=== PATIENT | female | born 1955 | race African-American/Black ===

== ENCOUNTER 2023-01-15 00:11 | Inpatient (IN) | payer MEDICARE, MEDICAID ==
[2023-01-15] VITALS (19 sets, daily range): BP systolic 114–143; BP diastolic 54–80; PULSE 85–123; RESP 17–44; TEMP 98.5; O2SAT 87–95
[~2023-01-15] VITALS: Ht 167.6 cm; Wt 91.1 kg
[~2023-01-15 00:11] MED LIST: CARV3.1240; CEPH500C PO; ENAL5TAB22; FAMO40TA7; FLUT500M6; FURO1TAB33; GABA-1250; HYDR-4833; METF-370; PROVENTIL; SENN8.6C; TEMA15CA; TIOTCAP; TRAZ-227
[2023-01-15] MEDS ORDERED: IPRATROPIUM BROM 0.5 MG/2.5ML INH SOL NEB ONE (00:45)
[2023-01-15] MEDS ORDERED: ALBUTEROL SULF 2.5 MG/0.5ML(0.5%) NEB SOLN NEB ONE (00:45)
[2023-01-15 01:14] LABS: Basophils # (auto) 0.1 10 ^3/uL (0-0.2); Basophils % (auto) 0.4 % (0.0-2.0); Eosinophils # (auto) 0 10 ^3/uL (0-0.8); Hematocrit 40.3 % (36.0-46.0); Hemoglobin 12.2 g/dL (12.2-16.2); Lymphocytes % (auto) 6.3 % (10.0-50.0); Mean Corpuscular Hemoglobin 25.6 pg (28.0-32.0); Mean Corpuscular Hgb Conc. 30.4 g/dL (32.0-36.0); Mean Corpuscular Volume 84.3 fL (80.0-100.0); Monocytes # (auto) 0.8 10 ^3/uL (0-1.3); Monocytes % (auto) 5.1 % (0.0-12.0); Neutrophils # (auto) 13.8 10 ^3/uL (1.6-8.6); Neutrophils % (auto) 88.2 % (37.0-80.0); Red Blood Cells 4.78 10^6/uL (4.0-5.20); Red Cell Distribution Width 14.7 % (11.8-14.3); White Blood Cell 15.6 10^3/uL (4.4-10.8)
[2023-01-15] MEDS ORDERED: DexAMETHasone SOD PHOS 10MG/1ML VIAL INJ IV ONE (01:15)
[2023-01-15 01:27] LABS: Alanine Aminotransferase 14 U/L (7-40); Albumin 4.5 g/dL (3.2-4.8); Alkaline Phosphatase 90 U/L (46-116); Anion Gap 3.5 (5-15); Aspartate Aminotransferase < 8 U/L (13-40); BUN/Creatinine Ratio 19.7 (10.0-20.0); Blood Urea Nitrogen 15 mg/dL (9-23); Calcium 9.7 mg/dL (8.7-10.4); Carbon Dioxide 39.5 mmol/L (20-30); Chloride 98 mmol/L (98-107); Glucose 134 mg/dL (74-106); Potassium 4.5 mmol/L (3.5-5.1); Sodium 141 mmol/L (136-145)
[2023-01-15 01:28] LABS: Bilirubin, Total 0.4 mg/dL (0.2-1.0); Total Protein 7.5 g/dL (5.7-8.2)
[2023-01-15 01:31] LABS: Partial Thromboplastin Time 24.9 SEC (24.5-34.5); Prothrombin Time 10.5 sec (9.3-11.8)
[2023-01-15 01:31] LABS: Base Excess 9.4 mmol/L (-2.0-2.0)
[2023-01-15] MEDS ORDERED: LORazepam 2MG/ML-1ML VIAL IV ONE ×2 (01:45→03:30)
[2023-01-15 03:01] LABS: Base Excess 8.7 mmol/L (-2.0-2.0)
[2023-01-15] MEDS ORDERED: HYDR-4902 PO (03:07)
[2023-01-15] MEDS ORDERED: MORPHINE SULFATE INJ 2 MG/ml SYRG IV PRN (03:15)
[2023-01-15] MEDS ORDERED: cefTRIAXone 1GM/50ML D5W 50 ML IV ONE (03:15)
[2023-01-15] MEDS ORDERED: ACETAMINOPHEN 325 MG TAB PO PRN (03:15)
[2023-01-15] MEDS ORDERED: ONDANSETRON HCL 4 MG/2 ML VIAL IV PRN (03:15)
[2023-01-15] MEDS ORDERED: NITROGLYCERIN 0.4 MG SL TAB SL PRN (03:15)
[2023-01-15] MEDS ORDERED: HYDROcodone-ACET 5/325MG TAB PO PRN (03:15)
[2023-01-15] MEDS ORDERED: DEXTROSE (50%) 50ML SYRG IV PRN (03:15)
[2023-01-15] MEDS ORDERED: DOCUSATE SOD 100 MG CAP PO PRN (03:15)
[2023-01-15] MEDS ORDERED: LIDOCAINE W/ EPINEPHRINE 1% 20ML VIAL SC ONE (03:30)
[2023-01-15] MEDS ORDERED: MIDAZOLAM HCL 5 MG/ML-1ML VIAL ONE (04:23)
[2023-01-15] MEDS ORDERED: MIDAZOLAM HCL 5 MG/ML-1ML VIAL IV ONE ×2 (04:24→05:45)
[2023-01-15 06:01] LABS: Basophils # (auto) 0 10 ^3/uL (0-0.2); Basophils % (auto) 0.1 % (0.0-2.0); Eosinophils # (auto) 0 10 ^3/uL (0-0.8); Mean Corpuscular Hemoglobin 25.5 pg (28.0-32.0); Red Cell Distribution Width 14.7 % (11.8-14.3)
[2023-01-15 06:04] LABS: Hematocrit 38.3 % (36.0-46.0); Hemoglobin 11.7 g/dL (12.2-16.2); Lymphocytes # (auto) 0.5 10 ^3/uL (0.4-5.4); Lymphocytes % (auto) 3.2 % (10.0-50.0); Mean Corpuscular Hgb Conc. 30.5 g/dL (32.0-36.0); Mean Corpuscular Volume 83.8 fL (80.0-100.0); Monocytes # (auto) 0.2 10 ^3/uL (0-1.3); Neutrophils # (auto) 15.1 10 ^3/uL (1.6-8.6); Neutrophils % (auto) 95.7 % (37.0-80.0); Red Blood Cells 4.57 10^6/uL (4.0-5.20); White Blood Cell 15.8 10^3/uL (4.4-10.8)
[2023-01-15 06:14] LABS: Alanine Aminotransferase 10 U/L (7-40); Albumin 4.4 g/dL (3.2-4.8); Alkaline Phosphatase 76 U/L (46-116); Anion Gap 8.1 (5-15); Aspartate Aminotransferase 10 U/L (13-40); BUN/Creatinine Ratio 20.3 (10.0-20.0); Bilirubin, Total 0.4 mg/dL (0.2-1.0); Blood Urea Nitrogen 15 mg/dL (9-23); Calcium 9.4 mg/dL (8.5-10.1); Carbon Dioxide 36.9 mmol/L (20-30); Chloride 97 mmol/L (98-107); Glucose 192 mg/dL (74-106); Potassium 3.8 mmol/L (3.5-5.1); Sodium 142 mmol/L (136-145); Total Protein 7.6 g/dL (5.7-8.2)
[2023-01-15 06:58] LABS: Base Excess 11.5 mmol/L (-2.0-2.0)
[2023-01-15] MEDS ORDERED: AZITHROMYCIN 500MG/ 250ML 250 ML IV ONE (07:00)
[2023-01-15] MEDS: SODIUM CHLOR 0.9% PF (SALINE LOCK) 10ML VIAL/SYR IV SCH ×3 (07:26→23:07)
[2023-01-15] MEDS: ACCU-CHEK COMFORT CURVE STRIP VI SCH ×4 (07:32→22:00)
[2023-01-15] MEDS: InsuLIN REG 1unit/0.01ml Soln (100units/ml) SC SCH ×4 (07:36→22:00)
[2023-01-15] MEDS: cefTRIAXone 1GM/50ML D5W 50 ML IV ONE ×2 (07:37→07:43)
[2023-01-15] MEDS: CARVEDILOL 3.125 MG TAB PO SCH ×2 (09:55→23:06)
[2023-01-15] MEDS: FAMOTIDINE (10MG/ML) 2ML VL IV SCH ×2 (09:57→23:06)
[2023-01-15] MEDS: FUROSEMIDE 20 MG/2 ML VIAL IV SCH (09:57)
[2023-01-15] MEDS: DexAMETHasone SOD PHOS 10MG/1ML VIAL INJ IV SCH (09:58)
[2023-01-15] MEDS: IPRATROPIUM BROM 0.5 MG/2.5ML INH SOL NEB PRN (10:21)
[2023-01-15] MEDS: ALBUTEROL SULF 2.5 MG/0.5ML(0.5%) NEB SOLN NEB PRN (10:21)
[2023-01-15] MEDS: LORazepam 2MG/ML-1ML VIAL IV PRN (11:41)
[2023-01-15] MEDS ORDERED: HALOPERIDOL LACTATE 5 MG/ML INJ VIAL IM ONE (12:45)
[2023-01-15] MEDS: MORPHINE SULFATE INJ 2 MG/ml SYRG IV PRN ×2 (13:58→22:56)
[2023-01-16] VITALS (39 sets, daily range): BP systolic 108–137; BP diastolic 45–81; PULSE 63–102; RESP 19–42; TEMP 97.7–98.6; O2SAT 89–100
[2023-01-16] MEDS: ALBUTEROL SULF 2.5 MG/0.5ML(0.5%) NEB SOLN NEB PRN (01:20)
[2023-01-16] MEDS: IPRATROPIUM BROM 0.5 MG/2.5ML INH SOL NEB PRN (01:20)
[2023-01-16 06:22] LABS: Basophils # (auto) 0.1 10 ^3/uL (0-0.2); Eosinophils # (auto) 0 10 ^3/uL (0-0.8); Hemoglobin 12.6 g/dL (12.2-16.2); Monocytes # (auto) 1.8 10 ^3/uL (0-1.3)
[2023-01-16 06:24] LABS: Basophils % (auto) 0.4 % (0.0-2.0); Hematocrit 39.8 % (36.0-46.0); Lymphocytes # (auto) 2.2 10 ^3/uL (0.4-5.4); Lymphocytes % (auto) 12.3 % (10.0-50.0); Mean Corpuscular Hemoglobin 25.7 pg (28.0-32.0); Mean Corpuscular Hgb Conc. 31.6 g/dL (32.0-36.0); Mean Corpuscular Volume 81.3 fL (80.0-100.0); Neutrophils % (auto) 77.3 % (37.0-80.0); Nucleated Red Blood Cells % 0.1 %; Red Cell Distribution Width 14.8 % (11.8-14.3); White Blood Cell 18.2 10^3/uL (4.4-10.8)
[2023-01-16 06:51] LABS: Alanine Aminotransferase 11 U/L (7-40); Albumin 4.5 g/dL (3.2-4.8); Alkaline Phosphatase 78 U/L (46-116); Aspartate Aminotransferase 13 U/L (13-40); Blood Urea Nitrogen 20 mg/dL (9-23); Chloride 95 mmol/L (98-107); Glucose 123 mg/dL (74-106); Potassium 3.9 mmol/L (3.5-5.1); Sodium 139 mmol/L (136-145)
[2023-01-16 06:52] LABS: Bilirubin, Total 0.6 mg/dL (0.2-1.0); Total Protein 7.7 g/dL (5.7-8.2)
[2023-01-16] MEDS: ALBUTEROL SULF 2.5 MG/0.5ML(0.5%) NEB SOLN NEB SCH ×4 (06:58→22:38)
[2023-01-16] MEDS: IPRATROPIUM BROM 0.5 MG/2.5ML INH SOL NEB SCH ×4 (06:58→22:38)
[2023-01-16] MEDS: ACCU-CHEK COMFORT CURVE STRIP VI SCH ×4 (07:00→20:19)
[2023-01-16] MEDS: InsuLIN REG 1unit/0.01ml Soln (100units/ml) SC SCH ×4 (07:00→20:19)
[2023-01-16 07:06] LABS: Anion Gap 3.99999 (5-15); Carbon Dioxide > 40.0 mmol/L (20-30)
[2023-01-16] MEDS ORDERED: VANCOMYCIN 1GM/250ML 250 ML IV ONE (08:45)
[2023-01-16] MEDS ORDERED: VANCOMYCIN PER PHARMACY 0 MG IV SCH (08:45)
[2023-01-16] MEDS: MORPHINE SULFATE INJ 2 MG/ml SYRG IV PRN (08:46)
[2023-01-16] MEDS: cefTRIAXone 1GM/50ML D5W 50 ML IV SCH (08:46)
[2023-01-16 09:16] LABS: Base Excess 12.8 mmol/L (-2.0-2.0)
[2023-01-16] MEDS: SODIUM CHLOR 0.9% PF (SALINE LOCK) 10ML VIAL/SYR IV SCH ×2 (10:00→20:23)
[2023-01-16] MEDS ORDERED: HALOPERIDOL LACTATE 5 MG/ML INJ VIAL IM ONE (10:00)
[2023-01-16] MEDS: FAMOTIDINE (10MG/ML) 2ML VL IV SCH ×2 (11:25→20:23)
[2023-01-16] MEDS: DexAMETHasone SOD PHOS 10MG/1ML VIAL INJ IV SCH (11:25)
[2023-01-16] MEDS: FUROSEMIDE 20 MG/2 ML VIAL IV SCH (11:27)
[2023-01-16] MEDS: CARVEDILOL 3.125 MG TAB PO SCH ×2 (11:29→20:24)
[2023-01-16] MEDS: VANCOMYCIN 1GM/250ML 250 ML IV SCH (20:24)
[2023-01-17] VITALS (26 sets, daily range): BP systolic 114–142; BP diastolic 52–76; PULSE 77–124; RESP 10–93; TEMP 97.7–98.6; O2SAT 89–100
[2023-01-17] MEDS: SODIUM CHLOR 0.9% PF (SALINE LOCK) 10ML VIAL/SYR IV SCH ×3 (05:37→22:01)
[2023-01-17] MEDS: InsuLIN REG 1unit/0.01ml Soln (100units/ml) SC SCH ×4 (05:38→22:17)
[2023-01-17] MEDS: IPRATROPIUM BROM 0.5 MG/2.5ML INH SOL NEB SCH ×5 (06:02→22:12)
[2023-01-17] MEDS: ALBUTEROL SULF 2.5 MG/0.5ML(0.5%) NEB SOLN NEB SCH ×5 (06:02→22:12)
[2023-01-17] MEDS: ACCU-CHEK COMFORT CURVE STRIP VI SCH ×4 (06:15→22:01)
[2023-01-17] MEDS: cefTRIAXone 1GM/50ML D5W 50 ML IV SCH (08:01)
[2023-01-17 09:48] LABS: Basophils # (auto) 0.1 10 ^3/uL (0-0.2); Basophils % (auto) 0.5 % (0.0-2.0); Eosinophils # (auto) 0 10 ^3/uL (0-0.8); Monocytes # (auto) 1.3 10 ^3/uL (0-1.3)
[2023-01-17 09:49] LABS: Eosinophils % (auto) 0.1 % (0.0-7.0); Hematocrit 41.7 % (36.0-46.0); Hemoglobin 13.2 g/dL (12.2-16.2); Lymphocytes # (auto) 2.1 10 ^3/uL (0.4-5.4); Lymphocytes % (auto) 12.4 % (10.0-50.0); Mean Corpuscular Hemoglobin 25.7 pg (28.0-32.0); Mean Corpuscular Hgb Conc. 31.6 g/dL (32.0-36.0); Mean Corpuscular Volume 81.4 fL (80.0-100.0); Monocytes % (auto) 7.3 % (0.0-12.0); Neutrophils # (auto) 13.9 10 ^3/uL (1.6-8.6); Neutrophils % (auto) 79.7 % (37.0-80.0); Nucleated Red Blood Cells % 0.1 %; Red Blood Cells 5.12 10^6/uL (4.0-5.20); Red Cell Distribution Width 14.5 % (11.8-14.3); White Blood Cell 17.4 10^3/uL (4.4-10.8)
[2023-01-17] MEDS: FAMOTIDINE (10MG/ML) 2ML VL IV SCH (09:49)
[2023-01-17] MEDS: DexAMETHasone SOD PHOS 10MG/1ML VIAL INJ IV SCH (09:50)
[2023-01-17] MEDS: FUROSEMIDE 20 MG/2 ML VIAL IV SCH (09:51)
[2023-01-17] MEDS: CARVEDILOL 3.125 MG TAB PO SCH ×2 (09:52→22:00)
[2023-01-17 10:15] LABS: Alanine Aminotransferase 28 U/L (7-40); Albumin 4.3 g/dL (3.2-4.8); Alkaline Phosphatase 73 U/L (46-116); Aspartate Aminotransferase 28 U/L (13-40); BUN/Creatinine Ratio 23.3 (10.0-20.0); Bilirubin, Total 0.3 mg/dL (0.2-1.0); Blood Urea Nitrogen 20 mg/dL (9-23); Calcium 9.4 mg/dL (8.5-10.1); Chloride 97 mmol/L (98-107); Glucose 233 mg/dL (74-106); Potassium 3.6 mmol/L (3.5-5.1); Sodium 143 mmol/L (136-145); Total Protein 7.3 g/dL (5.7-8.2)
[2023-01-17 10:26] LABS: Anion Gap 5.99999 (5-15)
[2023-01-17 10:27] LABS: Carbon Dioxide > 40.0 mmol/L (20-30)
[2023-01-17] MEDS: VANCOMYCIN 1GM/250ML 250 ML IV SCH (12:46)
[2023-01-17] MEDS ORDERED: HALOPERIDOL LACTATE 5 MG/ML INJ VIAL IM ONE (14:45)
[2023-01-17] MEDS ORDERED: HALOPERIDOL LACTATE 5 MG/ML INJ VIAL IM PRN (15:00)
[2023-01-17] MEDS ORDERED: diphenhdrAMINE HCL 50 MG/1 ML VL ONE (15:29)
[2023-01-17] MEDS: LORazepam 2MG/ML-1ML VIAL IV PRN (15:52)
[2023-01-18] VITALS (29 sets, daily range): BP systolic 115–126; BP diastolic 60–79; PULSE 70–97; RESP 14–43; TEMP 97.6–98; O2SAT 89–100
[2023-01-18] MEDS: VANCOMYCIN 1GM/250ML 250 ML IV SCH ×2 (05:01→21:47)
[2023-01-18] MEDS: SODIUM CHLOR 0.9% PF (SALINE LOCK) 10ML VIAL/SYR IV SCH ×3 (05:01→21:48)
[2023-01-18] MEDS: InsuLIN REG 1unit/0.01ml Soln (100units/ml) SC SCH ×4 (06:05→21:49)
[2023-01-18] MEDS: ACCU-CHEK COMFORT CURVE STRIP VI SCH ×4 (06:06→21:49)
[2023-01-18] MEDS: IPRATROPIUM BROM 0.5 MG/2.5ML INH SOL NEB SCH ×5 (06:27→22:16)
[2023-01-18] MEDS: ALBUTEROL SULF 2.5 MG/0.5ML(0.5%) NEB SOLN NEB SCH ×5 (06:27→22:16)
[2023-01-18] MEDS: FUROSEMIDE 20 MG/2 ML VIAL IV SCH (08:24)
[2023-01-18] MEDS: cefTRIAXone 1GM/50ML D5W 50 ML IV SCH (08:24)
[2023-01-18] MEDS: DexAMETHasone SOD PHOS 10MG/1ML VIAL INJ IV SCH (08:24)
[2023-01-18] MEDS: CARVEDILOL 3.125 MG TAB PO SCH ×2 (08:25→21:48)
[2023-01-18 10:23] LABS: Basophils # (auto) 0 10 ^3/uL (0-0.2); Basophils % (auto) 0.2 % (0.0-2.0); Eosinophils # (auto) 0.1 10 ^3/uL (0-0.8); Eosinophils % (auto) 0.4 % (0.0-7.0); Hematocrit 40.9 % (36.0-46.0); Hemoglobin 12.8 g/dL (12.2-16.2); Lymphocytes # (auto) 1.7 10 ^3/uL (0.4-5.4); Lymphocytes % (auto) 11.4 % (10.0-50.0); Mean Corpuscular Hemoglobin 25.7 pg (28.0-32.0); Mean Corpuscular Hgb Conc. 31.2 g/dL (32.0-36.0); Mean Corpuscular Volume 82.2 fL (80.0-100.0); Monocytes % (auto) 6.6 % (0.0-12.0); Neutrophils # (auto) 12.5 10 ^3/uL (1.6-8.6); Neutrophils % (auto) 81.4 % (37.0-80.0); Red Blood Cells 4.98 10^6/uL (4.0-5.20); Red Cell Distribution Width 14.7 % (11.8-14.3); White Blood Cell 15.3 10^3/uL (4.4-10.8)
[2023-01-18 10:58] LABS: Alanine Aminotransferase 19 U/L (7-40); Albumin 4.1 g/dL (3.2-4.8); Alkaline Phosphatase 60 U/L (46-116); Aspartate Aminotransferase 12 U/L (13-40); BUN/Creatinine Ratio 22.4 (10.0-20.0); Bilirubin, Total 0.5 mg/dL (0.2-1.0); Blood Urea Nitrogen 17 mg/dL (9-23); Calcium 9.4 mg/dL (8.5-10.1); Chloride 95 mmol/L (98-107); Glucose 211 mg/dL (74-106); Potassium 3.4 mmol/L (3.5-5.1); Sodium 138 mmol/L (136-145)
[2023-01-18] MEDS ORDERED: POTASSIUM CHL 20 Meq TABLET PO ONE (12:30)
[2023-01-18] MEDS: LORazepam 2MG/ML-1ML VIAL IV PRN (23:38)
[2023-01-19] VITALS (11 sets, daily range): BP systolic 126–131; BP diastolic 71–76; PULSE 71–102; RESP 18–24; TEMP 36.5; O2SAT 91–98
[2023-01-19 05:58] LABS: Eosinophils # (auto) 0 10 ^3/uL (0-0.8)
[2023-01-19 06:01] LABS: Alanine Aminotransferase 20 U/L (7-40); Albumin 4.7 g/dL (3.2-4.8); Alkaline Phosphatase 70 U/L (46-116); Anion Gap 7.7 (5-15); Aspartate Aminotransferase 14 U/L (13-40); BUN/Creatinine Ratio 24.1 (10.0-20.0); Blood Urea Nitrogen 20 mg/dL (9-23); Carbon Dioxide 34.3 mmol/L (20-30); Chloride 95 mmol/L (98-107); Glucose 118 mg/dL (74-106); Potassium 3.7 mmol/L (3.5-5.1); Sodium 137 mmol/L (136-145)
[2023-01-19 06:02] LABS: Bilirubin, Total 0.5 mg/dL (0.2-1.0)
[2023-01-19 06:05] LABS: Basophils # (auto) 0 10 ^3/uL (0-0.2); Basophils % (auto) 0.1 % (0.0-2.0); Eosinophils % (auto) 0.1 % (0.0-7.0); Hematocrit 42.1 % (36.0-46.0); Hemoglobin 13.4 g/dL (12.2-16.2); Lymphocytes # (auto) 2.6 10 ^3/uL (0.4-5.4); Mean Corpuscular Hemoglobin 25.8 pg (28.0-32.0); Mean Corpuscular Hgb Conc. 31.9 g/dL (32.0-36.0); Mean Corpuscular Volume 80.9 fL (80.0-100.0); Monocytes % (auto) 10.3 % (0.0-12.0); Neutrophils # (auto) 15.1 10 ^3/uL (1.6-8.6); Neutrophils % (auto) 76.5 % (37.0-80.0); Red Blood Cells 5.21 10^6/uL (4.0-5.20); Red Cell Distribution Width 14.6 % (11.8-14.3); White Blood Cell 19.7 10^3/uL (4.4-10.8)
[2023-01-19] MEDS: SODIUM CHLOR 0.9% PF (SALINE LOCK) 10ML VIAL/SYR IV SCH (06:12)
[2023-01-19] MEDS: ACCU-CHEK COMFORT CURVE STRIP VI SCH ×2 (06:14→11:30)
[2023-01-19] MEDS: InsuLIN REG 1unit/0.01ml Soln (100units/ml) SC SCH ×2 (06:14→11:30)
[2023-01-19] MEDS: IPRATROPIUM BROM 0.5 MG/2.5ML INH SOL NEB SCH ×3 (06:24→14:22)
[2023-01-19] MEDS: ALBUTEROL SULF 2.5 MG/0.5ML(0.5%) NEB SOLN NEB SCH ×3 (06:24→14:22)
[2023-01-19] MEDS: cefTRIAXone 1GM/50ML D5W 50 ML IV SCH (10:10)
[2023-01-19] MEDS: VANCOMYCIN 1GM/250ML 250 ML IV SCH (10:10)
[2023-01-19] MEDS: DexAMETHasone SOD PHOS 10MG/1ML VIAL INJ IV SCH (10:10)
[2023-01-19] MEDS: CARVEDILOL 3.125 MG TAB PO SCH (10:11)
[2023-01-19] MEDS: FUROSEMIDE 20 MG/2 ML VIAL IV SCH (10:11)
[2023-01-19] MEDS ORDERED: AZIT500T66 PO (10:44)
== END 2023-01-19 15:45 | disposition home or self-care (01) | DRG 720 ==
LOC: EDBD 00:11 → EDUNIT# 00:11 → ER 00:11 → TELE 03:22 → DOU IN ICU 17:00 → TELE-E-ADS 01-18 15:17
PROVIDERS: ADMIT Nurse Practitioner Family; ATTEND Family Medicine
PROC: 0W9930Z Drainage of Right Pleural Cavity with Drainage Device, Percutaneous Approach (ICD-10-PCS; principal; 2023-01-15)
PROC: 5A09357 Assistance with Respiratory Ventilation, Less than 24 Consecutive Hours, Continuous Positive Airway Pressure (ICD-10-PCS; 2023-01-15)
PROC: 5A0935A Assistance with Respiratory Ventilation, Less than 24 Consecutive Hours, High Flow/Velocity Cannula (ICD-10-PCS; 2023-01-15)
DX: A41.9 Sepsis, unspecified organism (principal); J96.01 Acute respiratory failure with hypoxia; R65.21 Severe sepsis with septic shock; E44.0 Moderate protein-calorie malnutrition; I11.0 Hypertensive heart disease with heart failure; I50.9 Heart failure, unspecified; J18.9 Pneumonia, unspecified organism; E11.65 Type 2 diabetes mellitus with hyperglycemia; J44.1 Chronic obstructive pulmonary disease with (acute) exacerbation; J44.0 Chronic obstructive pulmonary disease with (acute) lower respiratory infection; J93.83 Other pneumothorax; Z68.32 Body mass index [BMI] 32.0-32.9, adult; Z88.6 Allergy status to analgesic agent; Z87.891 Personal history of nicotine dependence; R45.1 Restlessness and agitation; Z90.710 Acquired absence of both cervix and uterus
CPT/HCPCS: 36415; 36600; 71045; 71250; 80053; 80202; 82805; 82962; 83880; 84484; 85025; 85610; 85730; 86850; 86900; 86901; 87040; 94640; 94660; 96365; 96375; 96376; 99291; G0378; J0696; J1100; J1815; J2250; J3490

== ENCOUNTER 2023-06-17 09:43 | Emergency (ER) | payer MEDICARE, MEDICAID ==
[~2023-06-17] VITALS: Ht 165.1 cm; Wt 113.0 kg
[~2023-06-17 09:43] MED LIST changes: +AZIT500T66 PO
[2023-06-17 10:30] LABS: Chloride 103 mmol/L (98-107); Potassium 3.8 mmol/L (3.5-5.1); Sodium 142 mmol/L (136-145)
[2023-06-17 10:31] LABS: Anion Gap 2 (5-15); Carbon Dioxide 37 mmol/L (20-30)
[2023-06-17 10:32] LABS: Calcium 9.6 mg/dL (8.5-10.1)
[2023-06-17 10:36] LABS: BUN/Creatinine Ratio 15.6 (10.0-20.0); Blood Urea Nitrogen 12 mg/dL (9-23); Glucose 105 mg/dL (74-106)
[2023-06-17 10:50] VITALS: PULSE 82; RESP 18; TEMP 97.6; O2SAT 93
[2023-06-17 11:14] LABS: Eosinophils # (auto) 0.2 10 ^3/uL (0-0.8); Lymphocytes # (auto) 2.1 10 ^3/uL (0.4-5.4); Nucleated Red Blood Cells % 0.1 %
[2023-06-17 11:16] LABS: Basophils # (auto) 0.1 10 ^3/uL (0-0.2); Basophils % (auto) 0.6 % (0.0-2.0); Eosinophils % (auto) 2.2 % (0.0-7.0); Hematocrit 41.4 % (36.0-46.0); Hemoglobin 12.6 g/dL (12.2-16.2); Lymphocytes % (auto) 21.8 % (10.0-50.0); Mean Corpuscular Hemoglobin 25.3 pg (28.0-32.0); Mean Corpuscular Hgb Conc. 30.5 g/dL (32.0-36.0); Mean Corpuscular Volume 83.1 fL (80.0-100.0); Monocytes % (auto) 10.3 % (0.0-12.0); Neutrophils # (auto) 6.2 10 ^3/uL (1.6-8.6); Neutrophils % (auto) 65.1 % (37.0-80.0); Red Blood Cells 4.99 10^6/uL (4.0-5.20); Red Cell Distribution Width 14.9 % (11.8-14.3); White Blood Cell 9.5 10^3/uL (4.4-10.8)
[2023-06-17 12:27] LABS: Platelet Estimate Adequate
[2023-06-17 12:28] LABS: Ovalocytes FEW; Stomatocytes Few
[2023-06-17 18:00] VITALS: BP 115/56; PULSE 81; RESP 27; O2SAT 100
== END 2023-06-17 18:34 ==
LOC: ER 09:43 → EDBD 09:43 → ER 18:25
DX: M62.9 Disorder of muscle, unspecified (principal); I11.0 Hypertensive heart disease with heart failure; I50.9 Heart failure, unspecified; J44.9 Chronic obstructive pulmonary disease, unspecified; E11.9 Type 2 diabetes mellitus without complications; Z90.710 Acquired absence of both cervix and uterus; Z87.891 Personal history of nicotine dependence; Z79.899 Other long term (current) drug therapy; Z79.2 Long term (current) use of antibiotics; Z88.6 Allergy status to analgesic agent
CPT/HCPCS: 36415; 70450; 80048; 85025

== ENCOUNTER 2023-11-09 05:30 | Inpatient (IN) | payer MEDICARE, MEDICAID ==
[~2023-11-09] VITALS: Ht 157.5 cm; Wt 70.0 kg
[2023-11-09] MEDS: SODIUM CHLORIDE 0.9% 500 ML IVB ONE (07:15)
[2023-11-09] MEDS: SODIUM CHLORIDE 0.9% 1,000 ML IV ONE (07:15)
[2023-11-09 07:34] VITALS: PULSE 91; RESP 19; O2SAT 97
[2023-11-09 07:48] LABS: Basophils # (auto) 0.1 10 ^3/uL (0-0.2); Eosinophils # (auto) 0.1 10 ^3/uL (0-0.8); Hemoglobin 12.8 g/dL (12.2-16.2); Neutrophils # (auto) 7.3 10 ^3/uL (1.6-8.6); White Blood Cell 10.1 10^3/uL (4.4-10.8)
[2023-11-09 07:50] LABS: Basophils % (auto) 0.7 % (0.0-2.0); Hematocrit 39.8 % (36.0-46.0); Mean Corpuscular Hemoglobin 26.4 pg (28.0-32.0); Mean Corpuscular Hgb Conc. 32.1 g/dL (32.0-36.0); Mean Corpuscular Volume 82.4 fL (80.0-100.0); Monocytes # (auto) 0.6 10 ^3/uL (0-1.3); Monocytes % (auto) 5.8 % (0.0-12.0); Neutrophils % (auto) 72.5 % (37.0-80.0); Nucleated Red Blood Cells % 0.1 %; Red Blood Cells 4.83 10^6/uL (4.0-5.20)
[2023-11-09 08:31] LABS: Albumin 4.4 g/dL (3.2-4.8); Alkaline Phosphatase 83 U/L (46-116); Anion Gap 5 (5-15); Aspartate Aminotransferase 9 U/L (13-40); Blood Urea Nitrogen 15 mg/dL (9-23); Calcium 9.4 mg/dL (8.5-10.1); Carbon Dioxide 30 mmol/L (20-30); Chloride 107 mmol/L (98-107); Glucose 153 mg/dL (74-106); Magnesium 1.9 mg/dL (1.6-2.6); Potassium 3.6 mmol/L (3.5-5.1); Sodium 142 mmol/L (136-145)
[2023-11-09 08:32] LABS: Alanine Aminotransferase < 9 U/L (7-40); Bilirubin, Total 0.4 mg/dL (0.2-1.0)
[2023-11-09 08:58] LABS: Urine Bacteria FEW /hpf (None Seen); Urine Blood Negative /uL (Negative); Urine Clarity Clear (Clear); Urine Color Yellow (Yellow); Urine Mucus FEW (None Seen); Urine Protein, UAD TRACE (Negative); Urine Specific Gravity 1.033 (1.001-1.035); Urine Urobilinogen 4 mg/dL (Negative); Urine WBC 5 /hpf (0 - 5); Urine pH 5.5 (5.0-9.0)
[2023-11-09] MEDS: SPIRONOLACTONE 25 MG TAB PO ONE (14:45)
[2023-11-09] MEDS: FUROSEMIDE 20 MG/2 ML VIAL IV ONE (14:45)
[2023-11-09] MEDS ORDERED: DOCUSATE SOD 100 MG CAP PO PRN (16:00)
[2023-11-09] MEDS ORDERED: HYDROcodone-ACET 5/325MG TAB PO PRN (16:00)
[2023-11-09] MEDS ORDERED: ONDANSETRON HCL 4 MG/2 ML VIAL IV PRN (16:00)
[2023-11-09] MEDS: FUROSEMIDE 40 MG/4 ML VIAL IV SCH (18:27)
[2023-11-09 20:00] VITALS: BP 137/75; PULSE 67; RESP 20; TEMP 98; O2SAT 95
[2023-11-09] MEDS: SODIUM CHLOR 0.9% PF (SALINE LOCK) 10ML VIAL/SYR IV SCH (22:00)
[2023-11-09 23:11] VITALS: BP 105/65; PULSE 82; RESP 18; TEMP 98.1; O2SAT 96
[2023-11-10] VITALS (8 sets, daily range): BP systolic 98–122; BP diastolic 34–48; PULSE 19–99; RESP 18–20; TEMP 97.8–98.4; O2SAT 92–100
[2023-11-10] MEDS: traZODone HCL 50 MG TAB PO SCH (00:12)
[2023-11-10] MEDS: CARVEDILOL 3.125 MG TAB PO SCH (00:13)
[2023-11-10] MEDS: ENOXAPARIN SOD 40 MG/0.4 ML SYRINGE SC SCH (10:17)
[2023-11-10 13:45] LABS: Basophils # (auto) 0.1 10 ^3/uL (0-0.2); Eosinophils # (auto) 0.2 10 ^3/uL (0-0.8); Eosinophils % (auto) 1.9 % (0.0-7.0); Hemoglobin 13.8 g/dL (12.2-16.2); Monocytes # (auto) 0.5 10 ^3/uL (0-1.3)
[2023-11-10] MEDS ORDERED: DEXTROSE (50%) 50ML SYRG IV PRN (13:45)
[2023-11-10 13:47] LABS: Basophils % (auto) 0.7 % (0.0-2.0); Hematocrit 42.6 % (36.0-46.0); Lymphocytes # (auto) 1.5 10 ^3/uL (0.4-5.4); Lymphocytes % (auto) 15.1 % (10.0-50.0); Mean Corpuscular Hemoglobin 26.6 pg (28.0-32.0); Mean Corpuscular Hgb Conc. 32.3 g/dL (32.0-36.0); Mean Corpuscular Volume 82.2 fL (80.0-100.0); Monocytes % (auto) 5.4 % (0.0-12.0); Neutrophils # (auto) 7.7 10 ^3/uL (1.6-8.6); Neutrophils % (auto) 76.9 % (37.0-80.0); Red Blood Cells 5.18 10^6/uL (4.0-5.20); Red Cell Distribution Width 16.4 % (11.8-14.3); White Blood Cell 9.9 10^3/uL (4.4-10.8)
[2023-11-10 13:55] LABS: Albumin 4.5 g/dL (3.2-4.8); Alkaline Phosphatase 75 U/L (46-116); Anion Gap 5 (5-15); Aspartate Aminotransferase 9 U/L (13-40); BUN/Creatinine Ratio 16.5 (10.0-20.0); Bilirubin, Total 0.8 mg/dL (0.2-1.0); Blood Alcohol 3.5 mg/dL (<10); Blood Urea Nitrogen 14 mg/dL (9-23); CRP High Sensitivity 0.39 mg/dL (<1.0); Calcium 9.8 mg/dL (8.5-10.1); Carbon Dioxide 33 mmol/L (20-30); Chloride 104 mmol/L (98-107); Cholesterol 162 mg/dL (< 200); Glucose 215 mg/dL (74-106); HDL Cholesterol 44 mg/dL (40-59); LDL Cholesterol 111 mg/dL (< 100); Potassium 3.7 mmol/L (3.5-5.1); Sodium 142 mmol/L (136-145); Total Protein 7.3 g/dL (5.7-8.2); Triglycerides 96 mg/dL (< 150)
[2023-11-10 13:59] LABS: Alanine Aminotransferase < 9 U/L (7-40)
[2023-11-10] MEDS: ALBUTEROL SULF 2.5 MG/0.5ML(0.5%) NEB SOLN NEB PRN (16:37)
[2023-11-10] MEDS: ACCU-CHEK COMFORT CURVE STRIP VI SCH (16:51)
[2023-11-10] MEDS: InsuLIN REG 1unit/0.01ml Soln (100units/ml) SC SCH (16:54)
[2023-11-10 20:46] LABS: Amphetamine Screen, Urine Neg (NEGATIVE); Benzodiazephine Screen, Urine Neg (NEGATIVE)
[2023-11-10 20:47] LABS: Barbiturate Scree,Urine Neg (NEGATIVE); Cannabinoid Screen, Urine Neg (NEGATIVE); Cocaine Screen, Urine Neg (NEGATIVE); Opiate Scree,Urine Neg (NEGATIVE); Phencyclidine Screen, Urine Neg (NEGATIVE)
[2023-11-11] VITALS (10 sets, daily range): BP systolic 94–114; BP diastolic 44–65; PULSE 19–92; RESP 14–20; TEMP 36.2; O2SAT 92–100
[2023-11-11] MEDS ORDERED: HALOPERIDOL LACTATE 5 MG/ML INJ VIAL IM PRN
[2023-11-11 07:07] LABS: RPR Non Reactive (Non Reactive)
[2023-11-11 11:16] LABS: Basophils # (auto) 0 10 ^3/uL (0-0.2); Basophils % (auto) 0.5 % (0.0-2.0); Eosinophils # (auto) 0.1 10 ^3/uL (0-0.8); Eosinophils % (auto) 1.5 % (0.0-7.0); Hematocrit 39.7 % (36.0-46.0); Hemoglobin 12.9 g/dL (12.2-16.2); Lymphocytes # (auto) 1.6 10 ^3/uL (0.4-5.4); Lymphocytes % (auto) 15.9 % (10.0-50.0); Mean Corpuscular Hemoglobin 26.4 pg (28.0-32.0); Mean Corpuscular Hgb Conc. 32.4 g/dL (32.0-36.0); Mean Corpuscular Volume 81.4 fL (80.0-100.0); Monocytes # (auto) 0.9 10 ^3/uL (0-1.3); Monocytes % (auto) 8.4 % (0.0-12.0); Neutrophils # (auto) 7.6 10 ^3/uL (1.6-8.6); Neutrophils % (auto) 73.7 % (37.0-80.0); Red Blood Cells 4.88 10^6/uL (4.0-5.20); Red Cell Distribution Width 15.9 % (11.8-14.3); White Blood Cell 10.3 10^3/uL (4.4-10.8)
[2023-11-11 11:34] LABS: Albumin 4.3 g/dL (3.2-4.8); Alkaline Phosphatase 69 U/L (46-116); Anion Gap 2 (5-15); Aspartate Aminotransferase < 8 U/L (13-40); BUN/Creatinine Ratio 25.3 (10.0-20.0); Blood Urea Nitrogen 19 mg/dL (9-23); Calcium 9.6 mg/dL (8.5-10.1); Carbon Dioxide 36 mmol/L (20-30); Chloride 102 mmol/L (98-107); Glucose 139 mg/dL (74-106); Magnesium 1.8 mg/dL (1.6-2.6); Potassium 3.5 mmol/L (3.5-5.1); Sodium 140 mmol/L (136-145)
[2023-11-11 11:35] LABS: Bilirubin, Total 0.6 mg/dL (0.2-1.0); Total Protein 6.8 g/dL (5.7-8.2)
[2023-11-11 11:58] LABS: Alanine Aminotransferase < 9 U/L (7-40)
[2023-11-11] MEDS: ACETAMINOPHEN 325 MG TAB PO PRN (15:04)
[2023-11-14 12:58] LABS: Folate (Folic Acid) 17.27 ng/mL (>5.38)
== END 2023-11-11 19:30 | disposition home or self-care (01) | DRG 194 ==
LOC: EDBD 05:30 → ER 05:35 → OVERFLOW 15:59 → WEST WING 23:10
PROVIDERS: ADMIT Internal Medicine Pulmonary Disease; ATTEND Internal Medicine Pulmonary Disease
DX: I11.0 Hypertensive heart disease with heart failure (principal); J96.22 Acute and chronic respiratory failure with hypercapnia; G93.41 Metabolic encephalopathy; I50.33 Acute on chronic diastolic (congestive) heart failure; G30.9 Alzheimer's disease, unspecified; F02.80 Dementia in other diseases classified elsewhere, unspecified severity, without behavioral disturbance, psychotic disturbance, mood disturbance, and anxiety; N30.90 Cystitis, unspecified without hematuria; E11.65 Type 2 diabetes mellitus with hyperglycemia; J44.89 Other specified chronic obstructive pulmonary disease; J45.909 Unspecified asthma, uncomplicated; E78.5 Hyperlipidemia, unspecified; Z90.710 Acquired absence of both cervix and uterus; Z88.6 Allergy status to analgesic agent; Z87.891 Personal history of nicotine dependence; Z83.3 Family history of diabetes mellitus; Z82.49 Family history of ischemic heart disease and other diseases of the circulatory system
CPT/HCPCS: 36415; 70450; 70551; 71046; 80053; 80061; 80307; 80320; 81001; 82140; 82607; 82746; 82962; 83036; 83735; 83880; 84443; 84484; 85025; 86141; 86592; 87086; 93306; 96361; 96374; 96376; 97163; G0378

== ENCOUNTER 2024-05-13 11:32 | Inpatient (IN) | payer MEDICARE, MEDICAID ==
[~2024-05-13] VITALS: Ht 170.2 cm; Wt 70.5 kg
[~2024-05-13 11:32] MED LIST changes: -AZIT500T66 PO; -CARV3.1240; +CARV3.1240 PO; -CEPH500C PO; +ESCI1TAB36 PO; -GABA-1250; +GABA-1250 PO; +IPRIH INH; -METF-370; +METF-370 PO
--- NOTE | 2024-05-13 11:55 | ECG ---
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
--- NOTE | 2024-05-13 12:41 | DVH ---
CHEST RADIOGRAPH Indication: sob Technique: Single frontal view of the chest was obtained Comparison: XY CHEST XRAY 1 VIEW on DOS: 08/29/23, XY CHEST PORTABLE on DOS: 01/16/23, XY CHEST PORTABLE on DOS: 01/16/23, XY CHEST PORTABLE on DOS: 01/15/23, XY CHEST PORTABLE on DOS: 01/15/23 FINDINGS: Lines and Tubes: None Lungs: No focal consolidation. Pleura: No effusion. No pneumothorax. Cardiomediastinal contours: Unremarkable Bones: No acute osseous abnormality. IMPRESSION: No acute cardiopulmonary disease.
--- NOTE | 2024-05-13 13:21 | ED.PDOC ---
History of Present Illness HPI Comments 68 y/o F, with a Hx of asthma, CHF, COPD w/3LPM home O2, dementia, DM, HLD, HTN, current hernia, hysterectomy, and former tobacco use, presents with granddaughter for c/o shortness of breath, chest, left arm, and LLQ abdominal pain, and ALOC w/abnormal behavior, today. Per granddaughter, patient endorses on sudden and unprovoked onset of chest pain that radiates to her left arm and shortness of breath, today, along with LLQ abdominal pain around the site of her current hernia that has been going on, chronically, for unspecified duration of time. Patient is also reported to have been acting abnormal, lately, with her being more irritable, combative, and delusional, lately. Patient has no known recent sick contact, spoiled food intake, injuries, strenuous activities, or other additional relevant or pertinent Hx. Patient has no reported fever, chills, nausea, vomiting, palpitations, or other associated symptoms at this time. Chief Complaint: Shortness of Breath Time Seen by MD: 11:30 Primary Care Provider: OOA Reviewed Notes: Nurses Notes, Medications, Allergies Allergies: Coded Allergies: Aspirin (Verified Allergy, Unknown, 01/15/23) Home Meds Reported Medications [Proventil] No Conflict Check 04/05/12 Fluticasone-Salmeterol (Advair Diskus) 500/50 Mis 04/05/12 Tiotropium [place] Monohydrate (Spiriva Handihaler) Handihlr Cap 04/05/12 Trazodone Hcl (Trazodone Hcl) 50 Mg Tab 04/05/12 Temazepam (Temazepam) 15 Mg Cap 04/05/12 Gabapentin (Gabapentin) 300 Mg Cap 04/05/12 Famotidine (Famotidine) 40 Mg Tab 04/05/12 Carvedilol (Carvedilol) 3.125 Mg Tab 04/05/12 Hydrocodone-Acetaminophen ([place] 5/325MG) 1 Tab Tb 04/05/12 Metformin Hydrochloride (Metformin Hcl) 500 Mg Tab 04/05/12 Enalapril Maleate (Enalapril Maleate) 5 Mg Tab 04/05/12 Sennosides (Senna) 8.6 Mg Cap 04/05/12 Furosemide (Lasix) 20 Mg Tb 04/05/12 Information Source: Relative (GrandChild) Mode of Arrival: Ambulatory Severity: Moderate Timing: Hours Duration: Since onset Prehospital treatment: None Past Medical History PAST MEDICAL HISTORY: Asthma, CHF, COPD (w/3lpm home O2), Dementia, DM, High Lipids, HTN Past Medical History (Other): current hernia, acute on chronic hypoxic respiratory failiure Surgical History: Hysterectomy ADULT LIVE IN CAREGIVER History: No Pertinent ADULT LIVE IN CAREGIVER History Family History Family History: No family hx of Cancer, No family hx of DM Social History Smoker: Quit Greater Than 1 Year Alcohol: Denies ETOH Use Drugs: Denies Drug Use Lives In: Home, Assisted Care Respiratory: reports: shortness of breath Cardiovascular: reports: chest pain, left arm pain Gastrointestinal: reports: abdominal pain Neurological: reports: others (ALOC w/abnormal behavior ) All Other Systems: Reviewed and Negative (negative unless otherwise staed above or in HPI) Physical Exam General Appearance: Moderate Distress HEENT: Normal ENT Inspection, Pharynx Normal, TMs Normal Neck: Full Range of Motion, Non-Tender, Normal, Normal Inspection Respiratory: Respiratory Distress, Other (Coarse breath sounds) Cardiovascular: No Edema, No JVD, No Murmur, No Gallop, Normal Peripheral Pulses, Regular Rate/Rhythm Breast Exam: Deferred Gastrointestinal: No Organomegaly, Non Tender, No Pulsatile Mass, Normal Bowel Sounds, Soft Genitalia: Deferred Pelvic: Deferred Rectal: Deferred Extremities: No calf tenderness, Normal capillary refill, Normal inspection, Normal range of motion, Non-tender, No pedal edema Musculoskeletal : Apperance: Normal Neurologic: Alert, No Motor Deficits, No Sensory Deficits Cerebellar Function: NOT DONE Reflexes: NOT DONE Skin: Normal Color Peripheral Pulses: 3+ Radial (R), 3+ Radial (L) Lymphatic: No Adenopathy Was a procedure done? Was a procedure done?: No EKG EKG : Pulse Rate (adult): 66 [place]: Normal Cardiac Rhythm: NSR Block: None Hypertrophy: None ST: Normal Differential Dx Considerations may include: asthma exacerbation, CHF exacerbation, COPD exacerbation, URI, PNA, UTI, encephalopathy, electrolyte imbalance, incarcerated hernia, strangulated hernia, diverticulitis, PID, ovarian torsion, ovarian cyst X-Ray, Labs, Meds, VS Vital Signs Date Time Temp Pulse Resp B/P (MAP) Pulse Ox O2 Delivery O2 Flow Rate FiO2 12/29/24 13:21 66 05/13/24 11:50 66 05/13/24 11:48 97.6 73 18 117/46 (69) 100 Lab Test 05/13/24 14:53 05/13/24 11:45 Range/Units White Blood Count 10.6 4.4-10.8 10^3/uL Red Blood Count 4.10 4.0-5.20 10^6/uL Hemoglobin 11.2 L 12.2-16.2 g/dL Hematocrit 35.1 L 36.0-46.0 % Mean Corpuscular Volume 85.6 80.0-100.0 fL Mean Corpuscular Hemoglobin 27.3 L 28.0-32.0 pg Mean Corpuscular Hemoglobin Concent 31.9 L 32.0-36.0 g/dL Red Cell Distribution Width 14.1 11.8-14.3 % Platelet Count 314 140-450 10^3/uL Mean Platelet Volume 8.3 6.9-10.8 fL Neutrophils (%) (Auto) 63.3 37.0-80.0 % Lymphocytes (%) (Auto) 27.0 10.0-50.0 % Monocytes (%) (Auto) 7.2 0.0-12.0 % Eosinophils (%) (Auto) 1.7 0.0-7.0 % Basophils (%) (Auto) 0.8 0.0-2.0 % Neutrophils # (Auto) 6.7 1.6-8.6 10 ^3/uL Lymphocytes # (Auto) 2.8 0.4-5.4 10 ^3/uL Monocytes # (Auto) 0.8 0-1.3 10 ^3/uL Eosinophils # (Auto) 0.2 0-0.8 10 ^3/uL Basophils # (Auto) 0.1 0-0.2 10 ^3/uL Nucleated Red Blood Cells 0.0 % Sodium Level 143 136-145 mmol/L Potassium Level 3.9 3.5-5.1 mmol/L Chloride Level 105 98-107 mmol/L Carbon Dioxide Level 32 H 20-31 mmol/L Anion Gap 6 5-15 Blood Urea Nitrogen 23 9-23 mg/dL Creatinine 0.77 0.550-1.02 mg/dL Glomerular Filtration Rate Calc 85 >90 mL/min BUN/Creatinine Ratio 29.9 H 10.0-20.0 Serum Glucose 97 74-106 mg/dL Calcium Level 9.7 8.7-10.4 mg/dL Total Bilirubin 0.2 0.2-1.0 mg/dL Aspartate Amino Transferase (AST) 16 13-40 U/L Alanine Aminotransferase (ALT) 10 7-40 U/L Alkaline Phosphatase 77 46-116 U/L Troponin I High Sensitivity < 3 L </=34 ng/L B-Type Natriuretic Peptide 61.68 0-100 pg/mL Total Protein 7.0 5.7-8.2 g/dL Albumin 4.3 3.2-4.8 g/dL POC Glucose 97 70-106 mg/dl [place] [id number] Ph: [phone] DIAGNOSTIC IMAGING Diagnostic Imaging Report : [id number] Signed PATIENT: DOLORES KUMAR ACCT: [id number] UNIT: [id number] : 1955 LOC: ER ROOM / BED: / AGE / SEX: 68 / F ADM STATUS: REG ER SERVICE 1155 ORDERING PHYSICIAN: PARVEZ BRISCOE MD PROCEDURE(s): CXRP - CHEST PORTABLE REASON: sob ORDER NUMBER(s): [id number], ACCESSION NUMBER(s): [id number] CHEST RADIOGRAPH Indication: sob Technique: Single frontal view of the chest was obtained Comparison: XY CHEST XRAY 1 VIEW on DOS: 08/29/23, XY CHEST PORTABLE on DOS: 01/16/23, XY CHEST PORTABLE on DOS: 01/16/23, XY CHEST PORTABLE on DOS: 01/15/23, XY CHEST PORTABLE on DOS: 01/15/23 FINDINGS: Lines and Tubes: None Lungs: No focal consolidation. Pleura: No effusion. No pneumothorax. Cardiomediastinal contours: Unremarkable Bones: No acute osseous abnormality. IMPRESSION: No acute cardiopulmonary disease. ATED BY: DARWIN KINGSTON MD DICTATED DATE/TIME: 05/13/24 1239 SIGNED BY: DARWIN KINGSTON MD SIGNED DATE/TIME: 05/13/24 1239 CC: Patient alert. Complaining of shortness a breath. Unable to expand her lungs. Placed on oxygen. Possible COPD exacerbation. Chest x-ray reviewed does not show any acute process. Establish intravenous access. Was given steroid. Was given breathing treatment. No swelling of the extremities. Reviewed her previous visit. Explained to the patient. Continue cardiac monitoring. Time of 1ST Reevaluation: 12:00 Reevaluation 1ST: Unchanged Patient Education/Counseling: Other (patient has dementia ) Family Education/Counseling: Diagnosis, Treatment Additional Information I reviewed the following notes from patient's past medical encounters: hospital discharge summary report on 11/11/23 The following tests were ordered, and results were reviewed by me: UA, CMP, BMP, BNP, CBC, TROPONIN, EKG, CXR Additional Information was gathered from interviewing the following independent historians: daughter I reviewed and agreed with the following test results read by other providers: CXR I discussed treatment and results with medical personnel and: daughter Departure 1 Departure Time of Disposition: 14:16 Impression: Primary Impression: Acute respiratory failure with hypoxia Additional Impression: COPD exacerbation Disposition: ADMITTED INPATIENT Admit to: Med Surg Condition: Guarded Critical Care Note Critical Care Time?: Yes (90 min-critical care time only) Stability Stability form required: No Heart Score Heart Score: Heart Score Response (Comments) Value History Moderate Suspicious 1 EKG Normal 0 Age >65 2 Risk Factors >3 or Hx ASHD 2 Troponin Normal limit 0 Total 5 I personally scribed for PARVEZ BRISCOE MD ([email or web address]) on 05/13/24 at 13:21. Electronically submitted by Marc Saha [email or web address]). PARVEZ BRISCOE MD May 13, 2024 13:21
[2024-05-13 15:31] LABS: Basophils # (auto) 0.1 10 ^3/uL (0-0.2); Basophils % (auto) 0.8 % (0.0-2.0); Eosinophils # (auto) 0.2 10 ^3/uL (0-0.8); Eosinophils % (auto) 1.7 % (0.0-7.0); Hematocrit 35.1 % (36.0-46.0); Hemoglobin 11.2 g/dL (12.2-16.2); Lymphocytes # (auto) 2.8 10 ^3/uL (0.4-5.4); Mean Corpuscular Hemoglobin 27.3 pg (28.0-32.0); Mean Corpuscular Hgb Conc. 31.9 g/dL (32.0-36.0); Mean Corpuscular Volume 85.6 fL (80.0-100.0); Monocytes # (auto) 0.8 10 ^3/uL (0-1.3); Monocytes % (auto) 7.2 % (0.0-12.0); Neutrophils # (auto) 6.7 10 ^3/uL (1.6-8.6); Neutrophils % (auto) 63.3 % (37.0-80.0); Platelet Count (auto) 314 10^3/uL (140-450); Red Cell Distribution Width 14.1 % (11.8-14.3); White Blood Cell 10.6 10^3/uL (4.4-10.8)
[2024-05-13 15:42] LABS: Alanine Aminotransferase 10 U/L (7-40); Albumin 4.3 g/dL (3.2-4.8); Alkaline Phosphatase 77 U/L (46-116); Anion Gap 6 (5-15); Aspartate Aminotransferase 16 U/L (13-40); BUN/Creatinine Ratio 29.9 (10.0-20.0); Calcium 9.7 mg/dL (8.7-10.4); Chloride 105 mmol/L (98-107); Glucose 97 mg/dL (74-106); Potassium 3.9 mmol/L (3.5-5.1); Sodium 143 mmol/L (136-145)
[2024-05-13 15:45] LABS: Bilirubin, Total 0.2 mg/dL (0.2-1.0); Blood Urea Nitrogen 23 mg/dL (9-23); Carbon Dioxide 32 mmol/L (20-31)
[2024-05-13 17:12] LABS: Urine Bacteria None Seen /hpf (None Seen)
[2024-05-13 17:26] LABS: Urine Blood Negative /uL (Negative); Urine Clarity Clear (Clear); Urine Color Light-Yellow (Yellow); Urine Protein, UAD Negative (Negative); Urine Specific Gravity 1.027 (1.001-1.035); Urine Squamous Epithelial Cell FEW /hpf (<5); Urine Urobilinogen Normal (Negative); Urine WBC 2 /hpf (0 - 5)
--- NOTE | 2024-05-13 21:40 | DVHHPRES ---
History of Present Illness Resident Creating Document: ARUNA DELEON RESIDENT History of Present Illness This is a 68-year-old female with past medical history of bronchial asthma , CHF, COPD with 3L home O2, dementia, type 2 DM, hyperlipidemia, hypertension the ED with a chief complaint of shortness of breath and dry cough for 2 days prior to this admission. The patient states that shortness of breath started 2 days ago, aggravated by exertion without any relieving factors and associated with dry cough which getting worse that prompted this visit. The patient denies fever, flu-like symptoms, sick contact, chest pain, dizziness, diaphoresis, abdominal pain, nausea, vomiting, dysuria, hematuria or any change in bowel movement. Past Medical History Bronchial asthma , CHF, COPD with 3L home O2, dementia, type 2 DM, hyperlipidemia, hypertension Past Surgical History None Family History None Smoke: No ALCOHOL: none Drugs: None Lives: with Family Review of Systems Constitutional: No: Fever, Chills, Sweats, Weakness, Malaise, Other Eyes: No: Pain, Vision change, Conjunctivae inflammation, Eyelid inflammation, Other, Redness ENT: No: Ear pain, Ear discharge, Nose pain, Nose discharge, Nose congestion, Mouth pain, Mouth swelling, Throat pain, Throat swelling, Other Respiratory: Cough, Dry, Shortness of breath, SOB with excertion; No: Wheezing, Hemoptysis, Pleuritic Pain, Sputum, Wheezing, Other Cardiovascular: No: Chest Pain, Palpitations, Orthopnea, Paroxysmal Noc. Dyspnea, Edema, Lt Headedness, Other Gastrointestinal: No: Nausea, Vomiting, Abdominal Pain, Diarrhea, Constipation, Melena, Hematochezia, Other Genitourinary: No Dysuria, No Frequency, No Incontinence, No Hematuria, No Retention, No Other Musculoskeletal: No: other, neck pain, shoulder pain, arm pain, back pain, hand pain, leg pain, foot pain Skin: No: Rash, Lesions, Jaundice, Bruising, Other Neurological: No: Weakness, Numbness, Incoordination, Change in speech, Confusion, Seizures, Other Allergies: Coded Allergies: Aspirin (Verified Allergy, Unknown, 01/15/23) Exam Vital Signs Vital Signs Date Time Temp Pulse Resp B/P (MAP) Pulse Ox O2 Delivery O2 Flow Rate FiO2 05/13/24 19:50 98.0 62 18 128/34 (65) 100 98.0 Exam Physical examination: General Appearance: Alert, Oriented X3, Cooperative, mild distress HEENT: Atraumatic, PERRLA, EOMI, Mucous membrane moist/pink Respiratory: Vesicular with prolonged expiration, scattered wheezing Cardiovascular: Regular rate, Normal S1, Normal S2, No murmurs, no chest wall tenderness Abdominal: Normal bowel sounds, Soft, No tenderness, No hepatospenomegaly, No masses Extremities: No clubbing, No cyanosis, No edema, Normal pulses, No tenderness/swelling Skin: No rashes, No breakdown, No significant lesion Neuro: Normal gait, Normal speech, Strength at 5/5 X4 ext, Normal tone, Sensation intact, Cranial nerves 3-12 NL, Reflexes 2+ Psych/Mental Status: Mental status NL, Mood NL Labs/Xrays Labs Test 05/13/24 14:53 05/13/24 11:47 05/13/24 11:45 Range/Units White Blood Count 10.6 4.4-10.8 10^3/uL Red Blood Count 4.10 4.0-5.20 10^6/uL Hemoglobin 11.2 L 12.2-16.2 g/dL Hematocrit 35.1 L 36.0-46.0 % Mean Corpuscular Volume 85.6 80.0-100.0 fL Mean Corpuscular Hemoglobin 27.3 L 28.0-32.0 pg Mean Corpuscular Hemoglobin Concent 31.9 L 32.0-36.0 g/dL Red Cell Distribution Width 14.1 11.8-14.3 % Platelet Count 314 140-450 10^3/uL Mean Platelet Volume 8.3 6.9-10.8 fL Neutrophils (%) (Auto) 63.3 37.0-80.0 % Lymphocytes (%) (Auto) 27.0 10.0-50.0 % Monocytes (%) (Auto) 7.2 0.0-12.0 % Eosinophils (%) (Auto) 1.7 0.0-7.0 % Basophils (%) (Auto) 0.8 0.0-2.0 % Neutrophils # (Auto) 6.7 1.6-8.6 10 ^3/uL Lymphocytes # (Auto) 2.8 0.4-5.4 10 ^3/uL Monocytes # (Auto) 0.8 0-1.3 10 ^3/uL Eosinophils # (Auto) 0.2 0-0.8 10 ^3/uL Basophils # (Auto) 0.1 0-0.2 10 ^3/uL Nucleated Red Blood Cells 0.0 % Sodium Level 143 136-145 mmol/L Potassium Level 3.9 3.5-5.1 mmol/L Chloride Level 105 98-107 mmol/L Carbon Dioxide Level 32 H 20-31 mmol/L Anion Gap 6 5-15 Blood Urea Nitrogen 23 9-23 mg/dL Creatinine 0.77 0.550-1.02 mg/dL Glomerular Filtration Rate Calc 85 >90 mL/min BUN/Creatinine Ratio 29.9 H 10.0-20.0 Serum Glucose 97 74-106 mg/dL Calcium Level 9.7 8.7-10.4 mg/dL Total Bilirubin 0.2 0.2-1.0 mg/dL Aspartate Amino Transferase (AST) 16 13-40 U/L Alanine Aminotransferase (ALT) 10 7-40 U/L Alkaline Phosphatase 77 46-116 U/L Troponin I High Sensitivity < 3 L </=34 ng/L B-Type Natriuretic Peptide 61.68 0-100 pg/mL Total Protein 7.0 5.7-8.2 g/dL Albumin 4.3 3.2-4.8 g/dL Urine Color Light-yellow Yellow Urine Clarity Clear Clear Urine pH 6.0 5.0-9.0 Urine Specific [place] 1.027 1.001-1.035 Urine Protein Negative Negative Urine Ketones Negative Negative Urine Blood Negative Negative /uL Urine Nitrite Negative Negative Urine Bilirubin Negative Negative Urine Urobilinogen Normal Negative mg/dL Urine Leukocyte Esterase Trace Negative /uL Urine RBC 1 0 - 4 /hpf Urine WBC 2 0 - 5 /hpf Urine Squamous Epithelial Cells Few <5 /hpf Urine Bacteria None seen None Seen /hpf Urine Glucose Normal Normal mg/dL POC Glucose 97 70-106 mg/dl Assessment/Plan Assessment/Plan Assessment and plan: # Acute on chronic respiratory failure due to exacerbation of COPD - Patient is on 4 L oxygen with saturation 97% # Acute exacerbation of chronic COPD - Duoneb with albuterol and ipratropium q.6 hours p.r.n. - IV methylprednisolone 40 mg b.i.d. - IV azithromycin 500 mg daily - Ordered COVID, flu # PUD prophylaxis - Pepcid 20 mg p.o. daily # DVT prophylaxis - Lovenox 40 mg sc daily Goal of care discussed with the patient for more than 17 minutes full code Plan discussed with Dr. Brewer Plan discussed with: Patient, Other Date of Service: May 13, 2024 Billing Provider: KORINA BREWER MD Common Visit Codes: [id number] INP/OBS CARE (HIGH) Secondary Visit Codes: [id number] CARE PLAN 30 MINUTES ARUNA DELEON RESIDENT May 13, 2024 21:40 KORINA BREWER MD May 15, 2024 10:44
[2024-05-13 23:00] VITALS: BP 128/34; PULSE 73; RESP 18; TEMP 98; O2SAT 98
[2024-05-13 23:40] VITALS: BP 106/41; PULSE 66; RESP 20; TEMP 98.1; O2SAT 100
[2024-05-14] VITALS (10 sets, daily range): BP systolic 113–141; BP diastolic 51–65; PULSE 59–77; RESP 17–20; TEMP 97.3–97.9; O2SAT 93–100
[2024-05-14] MEDS: methylPREDNISolone SOD SUCC 40 MG/ML VL IV SCH ×2 (00:22→22:00)
[2024-05-14] MEDS: AZITHROMYCIN 500MG/ 250ML 250 ML IV ONE (00:22)
[2024-05-14 03:12] LABS: COVID19 ANTIGEN SOFIA FIA NEGATIVE (NEGATIVE); Rapid Influenza A Negative (Negative); Rapid Influenza B Negative (Negative)
[2024-05-14] MEDS: HALOPERIDOL 1 MG TAB PO ONE (09:03)
[2024-05-14] MEDS: ENOXAPARIN SOD 40 MG/0.4 ML SYRINGE SC SCH (10:00)
[2024-05-14] MEDS: FAMOTIDINE 20 MG TAB PO SCH (10:00)
--- NOTE | 2024-05-14 11:22 | DVHPN2 ---
Subjective Patient denies any symptoms. Reviewed: Care Plan, H&P, Labs, Medications Changes from previous H/P or p: No Changes Eyes: No Pain, No Vision change, No Conjunctivae inflammation, No Eyelid inflammation, No Other, No Redness ENT: No Ear pain, No Ear discharge, No Nose pain, No Nose discharge, No Nose congestion, No Mouth pain, No Mouth swelling, No Throat pain, No Throat swelling, No Other Cardiovascular: No Chest Pain, No Palpitations, No Orthopnea, No Paroxysmal Noc. Dyspnea, No Edema, No Lt Headedness, No Other Respiratory: Cough, Dry, Shortness of breath, SOB with excertion; No Wheezing, No Hemoptysis, No Pleuritic Pain, No Sputum, No Other Gastrointestinal: No Nausea, No Vomiting, No Abdominal Pain, No Diarrhea, No Constipation, No Melena, No Hematochezia, No Other Genitourinary: No Dysuria, No Frequency, No Incontinence, No Hematuria, No Retention, No Other Musculoskeletal: No other, No neck pain, No shoulder pain, No arm pain, No back pain, No hand pain, No leg pain, No foot pain Skin: No Rash, No Lesions, No Jaundice, No Bruising, No Other Objective Vitals Vital Signs Date Time Temp Pulse Resp B/P (MAP) Pulse Ox O2 Delivery O2 Flow Rate FiO2 05/14/24 06:33 69 17 98 Room Air* 0 21 05/14/24 06:12 99.0 135/58 (83) 99.0 Intake/Output Intake and Output 05/14/24 07:00 Intake Total 100 ml Balance 100 ml Intake IV Total 100 ml General Appearance: Alert, Oriented X3 (Oriented to name and person), C ooperative, No acute distress HEENT: Atraumatic, PERRLA Lungs: Clear to auscultation, Normal air movement Cardiovascular: Normal S1, Normal S2 Abdomen: Normal bowel sounds, Soft, No tenderness Musculoskeletal: Normal sensory function, Normal motor function Neuro: Normal gait, Normal speech Psych/Mental Status: Mental status NL, Mood NL Medications Current Medications Medications Dose Ordered Sig/Facundo Route Start Time Stop Time Status Last Admin Dose Admin Albuterol 2.5 mg Q6HPRN PRN NEB 05/14/24 00:00 Ipratropium [place] 0.5 mg Q6HPRN PRN NEB 05/14/24 00:00 Azithromycin 250 ml @ 125 mls/hr DAILY@2200 IV 05/14/24 22:00 Methylprednisolone Sodium Succinate 40 mg BID IV 05/13/24 22:00 05/14/24 00:22 40 MG Famotidine 20 mg DAILY PO 05/14/24 10:00 Enoxaparin Sodium 40 mg DAILY SC 05/14/24 10:00 Laboratory Results Laboratory Tests 05/13/24 14:53 Chemistry Test 05/13/24 14:53 Albumin 4.3 g/dL (3.2-4.8) Calcium Level 9.7 mg/dL (8.7-10.4) Total Protein 7.0 g/dL (5.7-8.2) Cardiac Markers Test 05/13/24 14:53 B-Type Natriuretic Peptide 61.68 pg/mL (0-100) LFT Test 05/13/24 14:53 Alanine Aminotransferase (ALT) 10 U/L (7-40) Alkaline Phosphatase 77 U/L (46-116) Aspartate Amino Transferase (AST) 16 U/L (13-40) Total Bilirubin 0.2 mg/dL (0.2-1.0) Urinalysis Test 05/13/24 11:47 Urine Color Light-yellow (Yellow) Urine Clarity Clear (Clear) Urine pH 6.0 (5.0-9.0) Urine Specific [place] 1.027 (1.001-1.035) Urine Protein Negative (Negative) Urine Ketones Negative (Negative) Urine Blood Negative /uL (Negative) Urine Nitrite Negative (Negative) Urine Bilirubin Negative (Negative) Urine Urobilinogen Normal mg/dL (Negative) Urine Leukocyte Esterase Trace /uL (Negative) Urine RBC 1 /hpf (0 - 4) Urine WBC 2 /hpf (0 - 5) Urine Squamous Epithelial Cells Few /hpf (<5) Urine Bacteria None seen /hpf (None Seen) Urine Glucose Normal mg/dL (Normal) Labs and/or images reviewed: Labs reviewed by me, Image(s) reviewed by me Assessment/Plan Assessment/Plan Impression: -acute on chronic hypoxic respiratory failure Metabolic encephalopathy Chronic diastolic heart failure Asthma, stable COPD, with exacerbation Dementia/Alzheimer's disease DM, controlled Hyperlipidemia Primary hypertension Plan: -O2 supplementation to keep saturation greater than 90% -bronchodilators as needed -continue home antihypertensives -regular insulin sliding scale -PUD, DVT prophylaxis -repeat labs and chest x-ray in a.m. Total time spent with patient discussing and formulating plan of care: 35 minutes. This medical document was created using an electronic medical record system with [employer] dictation system. Although this document has been carefully reviewed, there may still be some phonetic and typographical errors. These areas are purely typographical due to imperfections of the software programs, and do not reflect any compromise in the patient's medical care. Plan discussed with: Patient, Other (RN) Date of Service: May 14, 2024 Billing Provider: JIMMY PIERRE NP Common Visit Codes: [id number] INP/OBS CARE(HIGH) JIMMY PIERRE NP May 14, 2024 11:21
[2024-05-14] MEDS: ACCU-CHEK COMFORT CURVE STRIP VI SCH ×2 (11:30→17:00)
[2024-05-14] MEDS ORDERED: DEXTROSE (50%) 50ML SYRG IV PRN ×2 (11:30→15:00)
[2024-05-14] MEDS: InsuLIN REG 1unit/0.01ml Soln (100units/ml) SC SCH ×2 (11:30→17:00)
[2024-05-14] MEDS ORDERED: HALOPERIDOL 1 MG TAB PO PRN (14:45)
[2024-05-14] MEDS: HALOPERIDOL 1 MG TAB PO PRN (14:56)
[2024-05-14] MEDS ORDERED: IPRATROPIUM BROM 0.5 MG/2.5ML INH SOL NEB PRN ×2 (15:00)
[2024-05-14] MEDS ORDERED: ALBUTEROL SULF 2.5 MG/0.5ML(0.5%) NEB SOLN NEB PRN ×2 (15:00)
[2024-05-14] MEDS ORDERED: AZITHROMYCIN 500MG/ 250ML 250 ML IV SCH (22:00)
[2024-05-14] MEDS ORDERED: GABAPENTIN 300 MG CAP PO SCH (22:00)
[2024-05-14] MEDS: AZITHROMYCIN 500MG/ 250ML 250 ML IV SCH (22:00)
[2024-05-14] MEDS ORDERED: traZODone HCL 50 MG TAB PO SCH (22:00)
[2024-05-14] MEDS ORDERED: CARVEDILOL 3.125 MG TAB PO SCH (22:00)
[2024-05-14] MEDS: CARVEDILOL 3.125 MG TAB PO SCH (22:00)
[2024-05-14] MEDS: GABAPENTIN 300 MG CAP PO SCH (22:51)
[2024-05-14] MEDS: traZODone HCL 50 MG TAB PO SCH (22:51)
[2024-05-15] VITALS (7 sets, daily range): BP systolic 109–138; BP diastolic 49–59; PULSE 58–83; RESP 18–19; TEMP 36.4; O2SAT 90–99
[2024-05-15] MEDS: FAMOTIDINE 20 MG TAB PO SCH (09:01)
[2024-05-15] MEDS: ENOXAPARIN SOD 40 MG/0.4 ML SYRINGE SC SCH (09:01)
--- NOTE | 2024-05-15 11:00 | DVHDS2 ---
Discharge Summary Date of Admission May 13, 2024 at 21:39 Date of Discharge: May 15, 2024 Admitting Diagnosis COPD exacerbation Labs/Diagnostic Data: Laboratory Results Test 05/15/24 06:21 05/14/24 02:21 05/13/24 14:53 05/13/24 11:47 POC Glucose 94 mg/dl (70-106) Influenza Type A Antigen Negative (Negative) Influenza Type B Antigen Negative (Negative) SARS-CoV-2 Antigen (Rapid) Negative (NEGATIVE) White Blood Count 10.6 10^3/uL (4.4-10.8) Red Blood Count 4.10 10^6/uL (4.0-5.20) Hemoglobin 11.2 g/dL (12.2-16.2) Hematocrit 35.1 % (36.0-46.0) Mean Corpuscular Volume 85.6 fL (80.0-100.0) Mean Corpuscular Hemoglobin 27.3 pg (28.0-32.0) Mean Corpuscular Hemoglobin Concent 31.9 g/dL (32.0-36.0) Red Cell Distribution Width 14.1 % (11.8-14.3) Platelet Count 314 10^3/uL (140-450) Mean Platelet Volume 8.3 fL (6.9-10.8) Neutrophils (%) (Auto) 63.3 % (37.0-80.0) Lymphocytes (%) (Auto) 27.0 % (10.0-50.0) Monocytes (%) (Auto) 7.2 % (0.0-12.0) Eosinophils (%) (Auto) 1.7 % (0.0-7.0) Basophils (%) (Auto) 0.8 % (0.0-2.0) Neutrophils # (Auto) 6.7 10 ^3/uL (1.6-8.6) Lymphocytes # (Auto) 2.8 10 ^3/uL (0.4-5.4) Monocytes # (Auto) 0.8 10 ^3/uL (0-1.3) Eosinophils # (Auto) 0.2 10 ^3/uL (0-0.8) Basophils # (Auto) 0.1 10 ^3/uL (0-0.2) Nucleated Red Blood Cells 0.0 % Sodium Level 143 mmol/L (136-145) Potassium Level 3.9 mmol/L (3.5-5.1) Chloride Level 105 mmol/L (98-107) Carbon Dioxide Level 32 mmol/L (20-31) Anion Gap 6 (5-15) Blood Urea Nitrogen 23 mg/dL (9-23) Creatinine 0.77 mg/dL (0.550-1.02) Glomerular Filtration Rate Calc 85 mL/min (>90) BUN/Creatinine Ratio 29.9 (10.0-20.0) Serum Glucose 97 mg/dL (74-106) Calcium Level 9.7 mg/dL (8.7-10.4) Total Bilirubin 0.2 mg/dL (0.2-1.0) Aspartate Amino Transferase (AST) 16 U/L (13-40) Alanine Aminotransferase (ALT) 10 U/L (7-40) Alkaline Phosphatase 77 U/L (46-116) Troponin I High Sensitivity < 3 ng/L (</=34) B-Type Natriuretic Peptide 61.68 pg/mL (0-100) Total Protein 7.0 g/dL (5.7-8.2) Albumin 4.3 g/dL (3.2-4.8) Urine Color Light-yellow (Yellow) Urine Clarity Clear (Clear) Urine pH 6.0 (5.0-9.0) Urine Specific Cardinal 1.027 (1.001-1.035) Urine Protein Negative (Negative) Urine Ketones Negative (Negative) Urine Blood Negative /uL (Negative) Urine Nitrite Negative (Negative) Urine Bilirubin Negative (Negative) Urine Urobilinogen Normal mg/dL (Negative) Urine Leukocyte Esterase Trace /uL (Negative) Urine RBC 1 /hpf (0 - 4) Urine WBC 2 /hpf (0 - 5) Urine Squamous Epithelial Cells Few /hpf (<5) Urine Bacteria None seen /hpf (None Seen) Urine Glucose Normal mg/dL (Normal) Other Laboratory Tests 05/13/24 14:53 Brief Hx & Hospital Course: History of Present Illness This is a 68-year-old female with past medical history of bronchial asthma , CHF, COPD with 3L home O2, dementia, type 2 DM, hyperlipidemia, hypertension the ED with a chief complaint of shortness of breath and dry cough for 2 days prior to this admission. The patient states that shortness of breath started 2 days ago, aggravated by exertion without any relieving factors and associated with dry cough which getting worse that prompted this visit. The patient denies fever, flu-like symptoms, sick contact, chest pain, dizziness, diaphoresis, abdominal pain, nausea, vomiting, dysuria, hematuria or any change in bowel movement. Course of hospitalization: Patient has been free of any respiratory difficulties over the past 24 hours. Currently she was on room air with saturation 91%. No wheezing has been appreciated. Vital signs have been stable. Chest x-ray clear. Patient is without any leukocytosis. Patient will be discharged home and continue all home medications. Physical examination General: Alert and Oriented x3. No acute distress. Well-nourished. Eyes: EOMI. Anicteric. HENT: Moist mucous membranes. Lungs: Clear to auscultation bilaterally. No accessory muscle use. Cardiovascular: Regular rate and rhythm. No murmur. No JVD. Abdomen: Soft, non-tender and non-distended. No palpable masses. Extremities: No edema. Non-tender. Skin: No rashes or lesions. Warm. Neurologic: No focal neurological deficits. CN II-XII grossly intact, but not individually tested. Psychiatric: Cooperative. Appropriate mood and affect. Total time spent with patient discussing and formulating plan of care: 35 minutes. This medical document was created using an electronic medical record system with [email or web address] dictation system. Although this document has been carefully reviewed, there may still be some phonetic and typographical errors. These areas are purely typographical due to imperfections of the software programs, and do not reflect any compromise in the patient's medical care. Condition at Discharge: Guarded Final Diagnosis/Problems List COPD exacerbation Secondary Diagnosis: -acute on chronic hypoxic respiratory failure Metabolic encephalopathy Chronic diastolic heart failure Asthma, stable Dementia/Alzheimer's disease DM, controlled Hyperlipidemia Primary hypertension Discharge Disposition: Home Discharge Instruct/Medications Diet: Cardiac 2g Na,low cholest Activity: No Restrictions, As Tolerated Follow Up/Referral: PCP in 1 week Medications: Continue all home medications 36 Discharge Statement: "Patient was advised to return to the ER or call 911 if any headaches, dizziness, shortness of breath, chest pain, abdominal pain, bleeding, fevers, or worsening of medical condition. Patient was counseled about treatment plan, medications, possible side effects, patientverbalized understanding. All questions were answered to the best of my ability. This discharge took greater then 30 minutes in planning, reviewing documentation, counseling the patient, and discussing with other team members." ASSESSMENT ASSESSMENT Assessment COPD exacerbation Date of Service: May 15, 2024 Billing Provider: JIMMY PIERRE NP Common Visit Codes: 86248-GOB/OBS DISCH DAY >30min JIMMY PIERRE NP May 15, 2024 11:00
== END 2024-05-15 17:22 | disposition home or self-care (01) | DRG 140 ==
LOC: ER 11:32 → OVERFLOW 21:39 → EAST 05-14 04:18 → OVERFLOW 05-14 07:24 → WEST WING 05-14 18:14
PROVIDERS: ATTEND Nurse Practitioner Acute Care
DX: J44.1 Chronic obstructive pulmonary disease with (acute) exacerbation (principal); J96.21 Acute and chronic respiratory failure with hypoxia; G93.41 Metabolic encephalopathy; I50.32 Chronic diastolic (congestive) heart failure; Z20.822 Contact with and (suspected) exposure to COVID-19; F02.80 Dementia in other diseases classified elsewhere, unspecified severity, without behavioral disturbance, psychotic disturbance, mood disturbance, and anxiety; I11.0 Hypertensive heart disease with heart failure; G30.9 Alzheimer's disease, unspecified; E11.9 Type 2 diabetes mellitus without complications; E78.5 Hyperlipidemia, unspecified; Z90.710 Acquired absence of both cervix and uterus; Z88.6 Allergy status to analgesic agent; Z87.891 Personal history of nicotine dependence
CPT/HCPCS: 36415; 71045; 80053; 81001; 82962; 83880; 84484; 85025; 87426; 87804; 93005; 99291; G0378

== ENCOUNTER 2024-08-11 16:58 | Emergency (ER) | payer MEDICARE, MEDICAID ==
[~2024-08-11] VITALS: Ht 170.2 cm; Wt 69.7 kg
--- NOTE | 2024-08-11 17:14 | ED.PDOC ---
General HPI Comments 69 year old female presents to the ED with chief complaint of abdominal/flank pain. Patient reports that she has been experiencing right sided flank pain that radiates to the right side of her abdomen since earlier this morning. Patient relays that her bowel movements and urination has been normal. Patient denies any N/V/D, fever, chills, dysuria, hematuria, chest pain, or SOB. Time Seen by MD: 17:11 Primary Care Provider: OOA Reviewed notes: Nurses Notes, Medications, Allergies Allergies: Coded Allergies: Aspirin (Verified Allergy, Unknown, 01/15/23) Home Meds Reported Medications Ipratropium Hewlett Hfa (Atrovent Hfa) 17 Mcg Aer, 2 PUFF INH QID for 25 Days, #12.9 GRAMS 05/14/24 Escitalopram Oxalate (ESCITALOPRAM OXALATE) 10 Mg Tab, 1 TAB PO DAILY for 30 Days, #30 05/14/24 [Proventil] No Conflict Check 04/05/12 Fluticasone-Salmeterol (Advair Diskus) 500/50 Mis 04/05/12 Tiotropium Hewlett Monohydrate (Spiriva Handihaler) Handihlr Cap 04/05/12 Trazodone Hcl (Trazodone Hcl) 50 Mg Tab 04/05/12 Temazepam (Temazepam) 15 Mg Cap 04/05/12 Gabapentin (Gabapentin) 300 Mg Cap, 1 CAP PO TID for 30 Days, #90 04/05/12 Famotidine (Famotidine) 40 Mg Tab 04/05/12 Carvedilol (Carvedilol) 3.125 Mg Tab, 1 TAB PO BID 04/05/12 Hydrocodone-Acetaminophen (Park 5/325MG) 1 Tab Tb 04/05/12 Metformin Hydrochloride (Metformin Hcl) 500 Mg Tab, 1 TAB PO BID for 25 Days, #12.9 04/05/12 Enalapril Maleate (Enalapril Maleate) 5 Mg Tab 04/05/12 Sennosides (Senna) 8.6 Mg Cap 04/05/12 Furosemide (Lasix) 20 Mg Tb 04/05/12 Information Source: Patient Mode of Arrival: Wheelchair Severity: Moderate Timing: Hours Duration: Since onset Prehospital treatment: None Onset: Spontaneous Symptoms: None History of: None Location: Abdomen, (R) Flank associated signs and symptoms: Abdominal Pain, Flank Pain Past Medical History PAST MEDICAL HISTORY: Asthma, CHF, COPD, Dementia, DM, High Lipids, HTN Surgical History: 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 [employer] History Family History Family History: No family hx of Cancer, No family hx of DM Social History Smoker: Quit Greater Than 1 Year Alcohol: Denies ETOH Use Drugs: Denies Drug Use Lives In: Home, Assisted Care Constitutional: denies: chills, diaphoresis, fatigue, fever, malaise, sweats, weakness, others EENTM: denies: blurred vision, double vision, ear bleeding, ear discharge, ear drainage, ear pain, ear ringing, eye pain, eye redness, hearing loss, mouth pain, mouth swelling, nasal discharge, nose bleeding, nose congestion, nose pain, photophobia, tearing, throat pain, throat swelling, voice changes, others Respiratory: denies: cough, hemoptysis, orthopnea, SOB at rest, shortness of breath, SOB with excertion, stridor, wheezing, others Cardiovascular: denies: chest pain, dizzy spells, diaphoresis, Dyspnea on exertion, edema, irregular heart beat, left arm pain, lightheadedness, palpitations, PND, syncope, others Gastrointestinal: reports: abdominal pain; denies: abdomen distended, blood streaked bowels, constipated, diarrhea, dysphagia, difficulty swallowing, hematemesis, melena, nausea, poor appetite, poor fluid intake, rectal bleeding, rectal pain, vomiting, others Genitourinary: reports: flank pain; denies: abnormal vagina bleeding, burning, dyspareunia, dysuria, frequency, hematuria, incontinence, pain, , vagina discharge, urgency, others Neurological: denies: dizziness, fainting, headache, left sided numbness, left sided weakness, numbness, paresthesia, pre-existing deficit, right sided numbne ss, right sided weakness, seizure, speech problems, tingling, tremors, weakness, others Musculoskeletal: denies: back pain, gout, joint pain, joint swelling, muscle pain, muscle stiffness, neck pain, others Integumetry: denies: bruises, change in color, change in hair/nails, dryness, laceration, lesions, lumps, rash, wounds, others Allergic/Immunocompromised: denies: Difficulty Healing, Frequent Infections, Hives, Itching, others Hematologic/Lymphatic: denies: anemia, blood clots, easy bleeding, easy bruising, swollen glands, others Endocrine: denies: excessive hunger, excessive sweating, excessive thirst, excessive urination, flushing, intolerance to cold, intolerance to heat, unexplained weight gain, unexplained weight loss, others Psychiatric: denies: anxiety, bipolar disorder, depression, hopeless, panic disorder, schizophrenia, sleepless, suicidal, others All Other Systems: Reviewed and Negative Physical Exam General Appearance: Moderate Distress (Kgjk-[id number] distress due to right- sided flank and abdominal pain concerns.), Normal HEENT: Normal ENT Inspection, Pharynx Normal, TMs Normal Neck: Full Range of Motion, Non-Tender, Normal, Normal Inspection Respiratory: Chest Non-Tender, Lungs Clear, No Accessory Muscle Use, No Respiratory Distress, Normal Breath Sounds Cardiovascular: No Edema, No JVD, No Murmur, No Gallop, Normal Peripheral Pulses, Regular Rate/Rhythm Breast Exam: Deferred Gastrointestinal: Other ( Diffuse right-sided flank pain extending into the abdomen. No signs of trauma. No pulsatile masses. Abdomen was reasonably soft.) Genitalia: Deferred Pelvic: Deferred Rectal: Deferred Extremities: No calf tenderness, Normal capillary refill, Normal inspection, Normal range of motion, Non-tender, No pedal edema Musculoskeletal : Apperance: Normal Neurologic: Alert, No Motor Deficits, Normal Affect, Normal Mood, No Sensory Deficits Cerebellar Function: Normal Reflexes: Normal Skin: Dry, Normal Color, Warm Lymphatic: No Adenopathy Was a procedure done? Was a procedure done?: No Differential Diagnosis Kidney stone (Female): Pyelonephritis, Urinary obstruction, Urolithiasis Urinary Problem (Female): UTI X-Ray, Labs, Meds, VS Vital Signs Date Time Temp Pulse Resp B/P (MAP) Pulse Ox O2 Delivery O2 Flow Rate FiO2 08/11/24 19:17 74 16 96 Nasal Cannula 3.0 08/11/24 19:17 97.9 74 16 127/59 (81) 96 97.9 08/11/24 17:26 78 08/11/24 17:16 97.4 86 22 120/59 (79) 96 97.4 Lab Test 08/11/24 17:22 Range/Units White Blood Count 8.5 4.4-10.8 10^3/uL Red Blood Count 4.54 4.0-5.20 10^6/uL Hemoglobin 12.3 12.2-16.2 g/dL Hematocrit 38.3 36.0-46.0 % Mean Corpuscular Volume 84.4 80.0-100.0 fL Mean Corpuscular Hemoglobin 27.0 L 28.0-32.0 pg Mean Corpuscular Hemoglobin Concent 32.0 32.0-36.0 g/dL Red Cell Distribution Width 13.6 11.8-14.3 % Platelet Count 343 140-450 10^3/uL Mean Platelet Volume 7.9 6.9-10.8 fL Neutrophils (%) (Auto) 68.3 37.0-80.0 % Lymphocytes (%) (Auto) 22.3 10.0-50.0 % Monocytes (%) (Auto) 7.0 0.0-12.0 % Eosinophils (%) (Auto) 1.5 0.0-7.0 % Basophils (%) (Auto) 0.9 0.0-2.0 % Neutrophils # (Auto) 5.8 1.6-8.6 10 ^3/uL Lymphocytes # (Auto) 1.9 0.4-5.4 10 ^3/uL Monocytes # (Auto) 0.6 0-1.3 10 ^3/uL Eosinophils # (Auto) 0.1 0-0.8 10 ^3/uL Basophils # (Auto) 0.1 0-0.2 10 ^3/uL Nucleated Red Blood Cells 0.0 % Sodium Level 146 H 136-145 mmol/L Potassium Level 4.0 3.5-5.1 mmol/L Chloride Level 107 98-107 mmol/L Carbon Dioxide Level 33 H 20-31 mmol/L Anion Gap 6 5-15 Blood Urea Nitrogen 18 9-23 mg/dL Creatinine 0.81 0.550-1.02 mg/dL Glomerular Filtration Rate Calc 80 >90 mL/min BUN/Creatinine Ratio 22.2 H 10.0-20.0 Serum Glucose 98 74-106 mg/dL Calcium Level 9.9 8.7-10.4 mg/dL Total Bilirubin 0.3 0.2-1.0 mg/dL Aspartate Amino Transferase (AST) 10 L 13-40 U/L Alanine Aminotransferase (ALT) < 9 7-40 U/L Alkaline Phosphatase 72 46-116 U/L Total Protein 7.2 5.7-8.2 g/dL Albumin 4.6 3.2-4.8 g/dL Lipase 48 12-53 U/L Current Medications Medications (Trade) Dose Ordered Sig/Facundo Route Start Time Stop Time Status Last Admin Ketorolac Tromethamine (Toradol Injection) 30 mg ONCE ONCE IM 08/11/24 17:15 08/11/24 17:16 DC 08/11/24 19:20 X-Ray, Labs, Meds, VS Comment Partially labs were returned at time of this note. Serum laboratories revealed a mild elevation in sodium, but otherwise unremarkable serum study. Urine had not returned. EKG revealed a sinus rhythm with a rate of 78. ST elevation which may be sales representative printing of a old lateral injury. [place] interval of 136 and QT interval of 375. Went to advise the patient of the studies, but nursing told me the patient left the facility AMA. Nursing was able to acquire a signed AMA form prior to the patient leaving the campus. Time of 1ST Reevaluation: 19:36 Reevaluation 1ST: Unchanged Consultation: PCP Patient Education/Counseling: Diagnosis, Treatment Family Education/Counseling: Diagnosis, Treatment, No Family Present Departure 1 Departure Time of Disposition: 19:34 Impression: Primary Impression: Abdominal pain Disposition: 07 LEFT AGAINST MEDICAL ADVICE Condition: Fair Discharged With: Self Critical Care Note Critical Care Time?: No Stability Stability form required: No Heart Score Heart Score: Heart Score Response (Comments) Value History N/A 0 EKG N/A 0 Age N/A 0 Risk Factors N/A 0 Troponin N/A 0 Total 0 I personally scribed for NBA MASON PAC ([email or web address]) on 08/11/24 at 17:14. Electronically submitted by Alberto Gonzalez ([email or web address]). NBA MASON PAC Aug 11, 2024 17:14
[2024-08-11 18:19] LABS: Basophils # (auto) 0.1 10 ^3/uL (0-0.2); Basophils % (auto) 0.9 % (0.0-2.0); Eosinophils # (auto) 0.1 10 ^3/uL (0-0.8); Eosinophils % (auto) 1.5 % (0.0-7.0); Hematocrit 38.3 % (36.0-46.0); Hemoglobin 12.3 g/dL (12.2-16.2); Lymphocytes # (auto) 1.9 10 ^3/uL (0.4-5.4); Lymphocytes % (auto) 22.3 % (10.0-50.0); Mean Corpuscular Volume 84.4 fL (80.0-100.0); Monocytes # (auto) 0.6 10 ^3/uL (0-1.3); Neutrophils # (auto) 5.8 10 ^3/uL (1.6-8.6); Neutrophils % (auto) 68.3 % (37.0-80.0); Platelet Count (auto) 343 10^3/uL (140-450); Red Blood Cells 4.54 10^6/uL (4.0-5.20); Red Cell Distribution Width 13.6 % (11.8-14.3); White Blood Cell 8.5 10^3/uL (4.4-10.8)
[2024-08-11 18:31] LABS: Albumin 4.6 g/dL (3.2-4.8); Alkaline Phosphatase 72 U/L (46-116); Anion Gap 6 (5-15); BUN/Creatinine Ratio 22.2 (10.0-20.0); Blood Urea Nitrogen 18 mg/dL (9-23); Calcium 9.9 mg/dL (8.7-10.4); Chloride 107 mmol/L (98-107); Glucose 98 mg/dL (74-106); Lipase 48 U/L (12-53); Total Protein 7.2 g/dL (5.7-8.2)
[2024-08-11 18:39] LABS: Alanine Aminotransferase < 9 U/L (7-40); Aspartate Aminotransferase 10 U/L (13-40); Bilirubin, Total 0.3 mg/dL (0.2-1.0); Carbon Dioxide 33 mmol/L (20-31); Sodium 146 mmol/L (136-145)
[2024-08-11 19:17] VITALS: BP 127/59; PULSE 74; RESP 16; TEMP 97.9; O2SAT 96
[2024-08-11] MEDS: KETOROLAC TROMETH 60MG/2ML VIAL IM ONE (19:20)
--- NOTE | 2024-08-13 11:13 | ECG ---
[facility] Test Date: 2024-08-11 Test Time: 17:26:09 Pat Name: DOLORES KUMAR Department: ER Room: Gender: F Senior Linux Engineer: EZE : 1955 Requested By: NBA MASON Order Number: [id number] Reading MD: Measurements Intervals [place] Rate: 78 P: 81 [place]: 136 QRS: 78 QRSD: 81 T: 79 QT: 375 QTc: 428 Interpretive Statements Sinus rhythm ST elevation, consider lateral injury Please click the below link to view image of tracing.
== END 2024-08-11 19:31 | disposition left against medical advice (07) ==
LOC: ER 17:04
DX: R10.84 Generalized abdominal pain (principal); J45.909 Unspecified asthma, uncomplicated; F03.90 Unspecified dementia, unspecified severity, without behavioral disturbance, psychotic disturbance, mood disturbance, and anxiety; E11.9 Type 2 diabetes mellitus without complications; I11.0 Hypertensive heart disease with heart failure; I50.9 Heart failure, unspecified; Z90.710 Acquired absence of both cervix and uterus; Z88.6 Allergy status to analgesic agent; Z79.84 Long term (current) use of oral hypoglycemic drugs; Z79.51 Long term (current) use of inhaled steroids; Z79.899 Other long term (current) drug therapy
CPT/HCPCS: 36415; 80053; 83690; 85025; 93005; 96372; 99284; J1885